=== PATIENT | male | born 1995 | race Caucasian/White ===

== ENCOUNTER 2022-10-17 14:43 | Emergency (ER) | payer MEDICAID ==
[~2022-10-17] VITALS: Ht 172.7 cm; Wt 57.6 kg
[2022-10-17 16:20] VITALS: BP 123/72
--- NOTE | 2022-10-17 16:26 | NUR ---
MARY ALICE. HANDED ON URINE CUP.
[2022-10-17] MEDS ORDERED: NAPR-1704 PO (19:07)
== END 2022-10-17 19:15 | disposition home or self-care (01) ==
LOC: MED 14:43
DX: S39.012A Strain of muscle, fascia and tendon of lower back, initial encounter (principal); X58.XXXA Exposure to other specified factors, initial encounter; Y93.89 Activity, other specified; Y92.89 Other specified places as the place of occurrence of the external cause; Y99.8 Other external cause status
CPT/HCPCS: 72100; 99283